=== PATIENT | female | born 1970 | race American Indian/Alaskan Native ===

== ENCOUNTER 2021-01-23 23:05 | Emergency (ER) | payer OTHER ==
[2021-01-23] MEDS ORDERED: ACETAMINOPHEN 500 MG TAB PO ONE (23:57)
[2021-01-23] MEDS ORDERED: IBUPROFEN 600 MG TAB PO ONE (23:57)
--- NOTE | 2021-01-24 02:37 | XRay Report ---
. RIGHT KNEE 3 VIEW(S) INDICATION / CLINICAL INFORMATION: fall - injury COMPARISON: None available. FINDINGS: BONES / JOINT(S): No acute fracture or subluxation. There is mild degenerative change in all 3 compar tments. SOFT TISSUES: There is an effusion in the suprapatella bursa. ADDITIONAL FINDINGS: None. Signer Name: Griffin Sandoval MD Signed: 01/24/2021 2:32 AM Workstation Name: [id number]
--- NOTE | 2021-01-24 02:52 | Emergency Department Report ---
ED Fall HPI - General Chief Complaint: Extremity Injury, Lower Stated Complaint: FALL/LEG/KNEE PAIN Source: patient Mode of arrival: Ambulatory - History of Present Illness Initial Comments: Patient is a 50-year-old -Irish female with no past medical history except morbid obesity presents to the ED with complaint of acute onset persistent severe right knee pain after she slipped and fell down on the floor at work a week ago. Patient states that the pain and swelling of worsened in the last 2 days. Patient states that the pain radiates to the proximal right thigh especially with movement. Patient denies head or neck injuries, dizziness, syncope, seizures, back pain, hip pain, chest pain or shortness of breath, numbness and tingling or weakness of lower extremities bilaterally. MD Complaint: fall, other (right knee pain) -: Sudden, week(s) (1) Fall From: standing When Fall Occurred: # days [employer] (7) Fall Witnessed: yes, by bystander Place Fall Occurred: work Loss of Consciousness: none Prolonged Down Time?: no Symptoms Prior to Fall: none Location: other (Right knee pain) Location - Extremities: Right: Knee (Right knee pain) Severity: severe Severity scale (0 -10): 8 Quality: sharp, aching Context: tripped/slipped Associated Symptoms: denies. denies: headache, neck pain, numbness, weakness, chest paint, shortness of breath, abdominal pain, hematuria, unable to walk, lightheaded, vertigo, confusion - Related Data Previous Rx's Medication Instructions Recorded Last Taken Type Acyclovir [Zovirax Tab] 400 mg PO BID #60 tab 05/13/15 Unknown Rx Fluconazole (Nf) [Diflucan TAB] 150 mg PO ONCE #2 tablet 05/13/15 Unknown Rx Ibuprofen [Motrin 800 MG tab] 800 mg PO Q8HR PRN #30 tablet 05/13/15 Unknown Rx Nitrofurantoin [place]/M-Cryst 100 mg PO Q12HR #14 capsule 05/13/15 Unknown Rx [Macrobid CAP] Baclofen 20 mg PO Q12H PRN #20 tablet 01/24/21 Unknown Rx Ibuprofen [Motrin] 800 mg PO Q8HR PRN #30 tablet 01/24/21 Unknown Rx traMADoL [Ultram] 50 mg PO Q6HR PRN #10 tablet 01/24/21 Unknown Rx Allergies Allergy/AdvReac Type Severity Reaction Status Date / Time metronidazole [From Flagyl] Allergy Itching Verified 05/13/15 15:22 ED Review of Systems ROS: Stated complaint: FALL/LEG/KNEE PAIN Other details as noted in HPI Constitutional: denies: chills, fever Eyes: denies: eye pain, eye discharge, vision change ENT: denies: ear pain, throat pain Respiratory: denies: cough, shortness of breath, wheezing Cardiovascular: denies: chest pain, palpitations Endocrine: no symptoms reported Gastrointestinal: denies: abdominal pain, nausea, diarrhea Genitourinary: denies: urgency, dysuria, discharge Musculoskeletal: arthralgia (Right knee pain), myalgia. denies: joint swelling Skin: denies: rash, lesions Neurological: denies: headache, weakness, paresthesias Psychiatric: denies: anxiety, depression Hematological/Lymphatic: denies: easy bleeding, easy bruising ED Past Medical Hx - Past Medical History Previous Medical History?: No - Surgical History Past Surgical History?: Yes Additional Surgical History: tubal ligation, hip replacement, c -sections - Social History Smoking Status: Never Smoker Substance Use Type: None - Medications Home Medications: Home Medications Medication Instructions Recorded Confirmed Last Taken Type Acyclovir [Zovirax Tab] 400 mg PO BID #60 tab 05/13/15 Unknown Rx Fluconazole (Nf) [Diflucan TAB] 150 mg PO ONCE #2 tablet 05/13/15 Unknown Rx Ibuprofen [Motrin 800 MG tab] 800 mg PO Q8HR PRN #30 tablet 05/13/15 Unknown Rx Nitrofurantoin [place]/M-Cryst 100 mg PO Q12HR #14 capsule 05/13/15 Unknown Rx [Macrobid CAP] Baclofen 20 mg PO Q12H PRN #20 tablet 01/24/21 Unknown Rx Ibuprofen [Motrin] 800 mg PO Q8HR PRN #30 tablet 01/24/21 Unknown Rx traMADoL [Ultram] 50 mg PO Q6HR PRN #10 tablet 01/24/21 Unknown Rx ED Physical Exam - General Limitations: Physical Limitation General appearance: alert, in no apparent distress - Head Head exam: Present: atraumatic, normocephalic, normal inspection - Eye Eye exam: Present: normal appearance, PERRL, EOMI Pupils: Present: normal accommodation - ENT ENT exam: Present: normal exam, normal orophraynx, mucous membranes moist, TM's normal bilaterally, normal external ear exam - Neck Neck exam: Present: normal inspection, full ROM - Respiratory Respiratory exam: Present: normal lung sounds bilaterally. Absent: respiratory distress, wheezes, rhonchi, stridor, chest wall tenderness, accessory muscle use, decreased breath sounds, prolonged expiratory - Cardiovascular Cardiovascular Exam: Present: regular rate, normal rhythm, normal heart sounds. Absent: systolic murmur, diastolic murmur, rubs, gallop - GI/Abdominal GI/Abdominal exam: Present: soft, normal bowel sounds. Absent: tenderness, guarding, rebound, hyperactive bowel sounds, organomegaly, mass - Extremities Exam Extremities exam: Present: normal inspection, full ROM, tenderness (Palpable right knee tenderness), normal capillary refill, joint swelling (Mildly swollen right knee joint). Absent: pedal edema, calf tenderness - Back Exam Back exam: Present: normal inspection, full ROM. Absent: tenderness, CVA tenderness (R), CVA tenderness (L), muscle spasm, paraspinal tenderness, vertebral tenderness, rash noted - Neurological Exam Neurological exam: Present: alert, oriented X3, CN II-XII intact, normal gait, reflexes normal - Psychiatric Psychiatric exam: Present: normal affect, normal mood - Skin Skin exam: Present: warm, dry, intact, normal color. Absent: rash ED Course Vital Signs 01/23/21 23:44 Temperature 98.9 F Pulse Rate 75 Respiratory 18 Rate Blood Pressure 170/147 O2 Sat by Pulse 100 Oximetry ED Medical Decision Making - Radiology Data Radiology results: report reviewed, image reviewed [facility] [address] [place] [address] XRay Report Signed Patient: SIMEON RICE MR#: [id number] 4 : 1970 Acct:[id number] Age/Sex: 50 / F ADM Date: 01/23/21 Loc: ED Attending Dr: Ordering Physician: DAWNA CRUMP Date of Service: 01/23/21 Procedure(s): XR knee 3V RT Accession Number(s): [id number] cc: DAWNA CRUMP Fluoro Time In Minutes: . RIGHT KNEE 3 VIEW(S) INDICATION / CLINICAL INFORMATION: fall - injury COMPARISON: None available. FINDINGS: BONES / JOINT(S): No acute fracture or subluxation. There is mild degenerative change in all 3 compartments. SOFT TISSUES: There is an effusion in the suprapatella bursa. ADDITIONAL FINDINGS: None. Signer Name: Griffin Sandoval MD Signed: 01/24/2021 2:32 AM Workstation Name: [id number] Transcribed By: Dictated By: Griffin Sandoval MD Electronically Authenticated By: Griffin Sandoval MD Signed Date/Time: 01/24/21231 DD/ 0 TD/TT: - Medical Decision Making This is a 50-year-old -Irish female with no past medical history except morbid obesity presents to the ED with complaint of acute onset persistent severe right knee pain after she slipped and fell down on the floor at work a week ago. Patient states that the pain and swelling of worsened in the last 2 days. Patient states that the pain radiates to the proximal right thigh especially with movement. In the ED, patient is alert and oriented x3 and is not in any distress. Patient was treated for pain in the ED and right knee x-ray showed no acute fractures and subluxations. On reevaluation, patient's pain is well controlled medication. Patient will discharge home on pain medications after application of Serjio wrap to the right knee. Patient was advised return to the ED immediately if symptoms get worse, otherwise follow-up with her primary care physician in 7 to 10 days for reevaluation. - Differential Diagnosis Knee sprain; knee fracture; knee contusion; leg muscle strain Critical care attestation.: If time is entered above; I have spent that time in minutes in the direct care of this critically ill patient, excluding procedure time. ED Disposition Clinical Impression: Contusion of right lower leg, initial encounter Sprain of right knee/leg Qualifiers: Encounter type: initial encounter Qualified Code(s): S83.91XA - Sprain of unspecified site of right knee, initial encounter Disposition: TO HOME OR SELFCARE Is pt being admited?: No Does the pt Need Aspirin: No Condition: Stable Instructions: Knee Sprain, Adult, [id number], Contusion, [id number] Additional Instructions: The right knee x-ray showed no acute fractures and subluxations. Therefore take medications with food, drink plenty fluids and follow-up with your primary care physician in 7 to 10 days for reevaluation. Return to the ED immediately if symptoms get worse. Prescriptions: Baclofen 20 mg PO Q12H PRN #20 tablet PRN Reason: Muscle Spasm Ibuprofen [Motrin] 800 mg PO Q8HR PRN #30 tablet PRN Reason: Pain , Severe (7-10) traMADoL [Ultram] 50 mg PO Q6HR PRN #10 tablet PRN Reason: Pain Referrals: [facility] [Provider Group] - 7-10 days Forms: Work/School Release Form(ED) Time of Disposition: 02:54 Print Language: CITIZEN OF [place]
[2021-01-24] MEDS ORDERED: NEOMY 3.5 MG/BACIT 400 UNITS/POLY B 5000 UNITS/GM OINT PACKET TP ONE (03:15)
[2021-01-24 03:28] VITALS: BP 192/100
== END 2021-01-24 03:33 | disposition home or self-care (01) ==
LOC: ED 23:05
DX: S83.91XA Sprain of unspecified site of right knee, initial encounter (principal); S80.11XA Contusion of right lower leg, initial encounter; E66.01 Morbid (severe) obesity due to excess calories; Z68.41 Body mass index [BMI] 40.0-44.9, adult; Z79.899 Other long term (current) drug therapy; Z98.890 Other specified postprocedural states; Z88.8 Allergy status to other drugs, medicaments and biological substances; Z98.51 Tubal ligation status; W18.30XA Fall on same level, unspecified, initial encounter; Y93.89 Activity, other specified; Y92.89 Other specified places as the place of occurrence of the external cause; Y99.0 Civilian activity done for income or pay
CPT/HCPCS: 73562; 99283; A6250